=== PATIENT | female | born 1985 | race Caucasian/White ===

== ENCOUNTER 2019-05-15 16:28 | Observation (INO) ==
[2019-05-15] MEDS ORDERED: NITROGLYCERIN SL 0.4 MG TABLET SL STA (16:50)
[2019-05-15] MEDS ORDERED: METOCLOPRAMIDE 10 MG/2 ML VIAL IV STA (16:50)
[2019-05-15] MEDS ORDERED: LORazepam 2 MG/1 ML VIAL IV STA (16:50)
[2019-05-15] MEDS ORDERED: ONDANSETRON 4 MG/2 ML VIAL IV STA (16:50)
[2019-05-15] MEDS ORDERED: PANTOPRAZOLE 40 MG VIAL IV STA (16:50)
[2019-05-15 17:21] LABS: Basophils # 0.1 10*3/uL (0.0-0.2); Basophils % 0.5 % (0.0-0.8); Eosinophils # 0.2 10*3/uL (0.0-0.87); Eosinophils % 1.8 % (0.00-10.9); Hematocrit 44.6 VOL% (35.7-47.0); Hemoglobin 14.9 GM/DL (12.0-16.0); Immature Granulocytes % 0.3 %; Immature Granulocytes Absolute 0.03 #; Lymphocytes # 2.9 10*3/uL (1.4-4.0); Lymphocytes % 29.3 % (21.3-54.2); Mean Corpuscular HGB Conc 33.4 GM/DL (32-36); Mean Corpuscular Volume 97.4 FL (87-102); Mean Platelet Volume 11.6 FL (9.6-12.0); Monocytes % 6.1 % (1.7-12.7); Platelet Count 202 T/CUMM (130-400); Red Blood Count 4.58 MC/CUMM (3.8-5.5); Red Cell Distribution Width 13.7 % (9.3-17.3)
[2019-05-15 17:42] LABS: Albumin 4.2 G/DL (3.4-5.0); Bilirubin,Total 0.4 MG/DL (0.2-1.0); Calcium 9.3 MG/DL (8.5-10.1); Osmolality,Calculated 277.5 MOS/KG (273-304)
[2019-05-15] MEDS ORDERED: LIDOCAINE 2% 5 ML VIAL ONE (18:40)
[2019-05-15] MEDS ORDERED: PROPOFOL 200 MG/20 ML VIAL IV ONE (18:40)
[2019-05-15 18:59] VITALS: BP 108/87
== END 2019-05-15 19:16 | disposition home or self-care (01) ==
LOC: N.ED 16:28 → N.EDINP 16:28
PROVIDERS: ADMIT Internal Medicine Gastroenterology; ATTEND Internal Medicine Gastroenterology